=== PATIENT | male | born 1960 | race Hispanic/Latino ===

== ENCOUNTER 2017-07-29 10:13 | Emergency (ER) | payer SELFPAY ==
[~2017-07-29] VITALS: Ht 160 cm; Wt 57.8 kg
[~2017-07-29 10:13] MED LIST: AMOXICILLIN500 MG OR; GLYBURIDE5 MG PO; METFORMIN500 MG PO; NO HOME MEDS PER PT
[2017-07-29] MEDS ORDERED: CEPHALEXIN500 MG PO (12:49)
[2017-07-29] MEDS ORDERED: BACTRIM DS1 TAB PO (12:49)
[2017-07-29 13:06] VITALS: BP 138/80
== END 2017-07-29 13:00 | disposition home or self-care (01) | DRG 603 ==
LOC: ED 10:13
DX: L02.512 Cutaneous abscess of left hand (principal); E11.9 Type 2 diabetes mellitus without complications